=== PATIENT | female | born 1970 | race African-American/Black ===

== ENCOUNTER 2019-06-02 12:14 | Observation (INO) | payer OTHER ==
[2019-06-02 12:23] VITALS: BMI 29.2
--- NOTE | 2019-06-02 12:45 | PDOC ---
History of Present Illness - General Chief Complaint: Blood Pressure Problem Stated Complaint: HYPERTENSION/ HEADACHE Time Seen by Provider: 06/02/19 12:45 Past History - Past Medical History Allergies/Adverse Reactions: Allergies Allergy/AdvReac Type Severity Reaction Status Date / Time No Known Allergies Allergy Verified 06/02/19 12:20 Home Medications: Ambulatory Orders Azithromycin [Zithromax -] 250 mg PO UTDICT #6 tab 04/01/16 CVA: No COPD: No DVT: No Thyroid Disease: No - Immunization History Immunization Up to Date: Yes - Suicide/Smoking/Psychosocial Hx Smoking Status: Yes Smoking History: Never smoked Number of Cigarettes Smoked Daily: 10 'Breaking Loose' booklet given: 04/01/16 Hx Alcohol Use: No Drug/Substance Use Hx: No Substance Use Type: Marijuana *Physical Exam - Vital Signs Last Vital Signs Temp Pulse Resp BP Pulse Ox 98.5 F 73 16 160/101 H 100 06/02/19 12:20 06/02/19 12:20 06/02/19 12:20 06/02/19 12:20 06/02/19 12:20 ED Treatment Course - LABORATORY CBC & Chemistry Diagram: 06/02/19 13:30 06/02/19 13:30 Medical Decision Making - Medical Decision Making HPI: 48yo F with no PMH presenting with high blood pressure reading. Patient does not know what her normal blood pressure is (on chart review BP was 108/78 in 2016). A mobile health van was in her neighborhood and her blood pressure was 148 systolic. Out of concern for a high number, patient checked her blood pressure again today at her pharmacy and it was 160 systolic. She became concerned and decided to come to the ED for evaluation. Reports family history of hypertension; her mother takes medication for it. Denies chest pain, dyspnea , hematuria. Patient is about a 20 pack-year smoker and daily marijuana smoker. Has had about three headaches over the past month and currently feels one coming on now. These headaches are at her baseline and were relieved with two tablets of motrin. 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 No fevers or chills. PCP: Does not currently follow with a primary care provider ROS: Constitutional: no fever, +hot flashes HEENT: no throat pain, no dysphagia Cardiovascular: no chest pain, no palpitations Respiratory: no cough, no shortness of breath Gastrointestinal: no abdominal pain, no nausea Genitourinary: no dysuria, no hematuria Musculoskeletal: no myalgia, no arthralgia Skin: no rash, no itching Neurologic: +headache, no weakness PE: General: Awake, alert, and fully oriented, tearful Head: No signs of trauma Eyes: EOMI, sclera anicteric ENT: Moist mucus membranes Neck: Normal ROM, supple Lungs: Lungs clear, Normal breath sounds Cardio: Regular rhythm, S1 and S2 present Abdomen: Soft, nontender Extremities: Normal range of motion, Distal pulses present SKIN: Warm, Dry, normal turgor Neurologic: Cranial nerves II through XII intact. Normal speech, sensation, strength, coordination, and gait. ED Courses/MDM: DDX including but not limited to asymptomatic hypertension, hypertensive urgency vs emergency, ACS, syncope, CVA, tension headache Labs, EKG 975mg tylenol EKG: rate 62, QTc 403, sinus with frequent PVCs, no prior EKGs hall monitor ordered to assess pattern of PVCs CBC WBC 4.5 K/mm3 (4.0-10.0) 06/02/19 13:30 RBC 4.55 M/mm3 (3.60-5.2) 06/02/19 13:30 Hgb 14.1 GM/dL (10.7-15.3) 06/02/19 13:30 Hct 41.9 % (32.4-45.2) 06/02/19 13:30 MCV 92.1 fl (80-96) 06/02/19 13:30 MCH 31.1 pg (25.7-33.7) 06/02/19 13:30 MCHC 33.7 g/dl (32.0-36.0) 06/02/19 13:30 RDW 13.2 % (11.6-15.6) 06/02/19 13:30 Plt Count 185 K/MM3 (134-434) 06/02/19 13:30 MPV 9.7 fl (7.5-11.1) 06/02/19 13:30 Absolute Neuts (auto) 1.9 K/mm3 (1.5-8.0) 06/02/19 13:30 Neutrophils % 41.4 % (42.8-82.8) L 06/02/19 13:30 Lymphocytes % 41.4 % (8-40) H 06/02/19 13:30 Monocytes % 13.5 % (3.8-10.2) H 06/02/19 13:30 Eosinophils % 2.4 % (0-4.5) 06/02/19 13:30 Basophils % 1.3 % (0-2.0) 06/02/19 13:30 Nucleated RBC % 0 % (0-0) 06/02/19 13:30 No leukocytosis 06/02/19 14:00 CXR without acute pathology, my impression Patient continues to be without acute complaints but reports anxiety at being in the emergency department hall monitor shows frequent PVCs 06/02/19 15:17 PVCs present [id number] or every third beat No signs of end-organ damage on blood work We will plan to admit for telemetry 06/02/19 15:42 *DC/Admit/Observation/Transfer Diagnosis at time of Disposition: Hypertension Qualifiers: Hypertension type: unspecified Qualified Code(s): I10 - Essential (primary) hypertension Dysrhythmia Qualifiers: Atrial fibrillation type: unspecified - Discharge Dispostion Disposition: HOME Condition at time of disposition: Guarded Decision to Admit order: Yes - Referrals - Patient Instructions - Post Discharge Activity
[2019-06-02] MEDS ORDERED: ACETAMINOPHEN 325 MG TABLET (FP) PO ONE (13:15)
[2019-06-02] MEDS ORDERED: ACETAMINOPHEN 325 MG TABLET (FP) ONE (13:23)
[2019-06-02 13:48] LABS: BASO % 1.3 % (0-2.0); EOS % 2.4 % (0-4.5); HEMATOCRIT 41.9 % (32.4-45.2); HEMOGLOBIN 14.1 GM/dL (10.7-15.3); LYMPH % 41.4 % (8-40); MCH 31.1 pg (25.7-33.7); MCHC 33.7 g/dl (32.0-36.0); MEAN CELL VOLUME 92.1 fl (80-96); MEAN PLT VOLUME 9.7 fl (7.5-11.1); MONO % 13.5 % (3.8-10.2); NEUT % 41.4 % (42.8-82.8); PLATELET COUNT 185 K/MM3 (134-434); RBC 4.55 M/mm3 (3.60-5.2); RDW 13.2 % (11.6-15.6); WHITE BLOOD COUNT 4.5 K/mm3 (4.0-10.0)
--- NOTE | 2019-06-02 13:48 | PDOC ---
Documentation entered by Saloni Marcial SCRIBE, acting as scribe for Naya Welch MD. Naya Welch MD: This documentation has been prepared by the Aggie cullen Sammi, SCRIBE, under my direction and personally reviewed by me in its entirety. I confirm that the documentation accurately reflects all work, treatment, procedures, and medical decision making performed by me. Attending Attestation - Resident Resident Name: LisaAileen - ED Attending Attestation I have performed the following: I have examined & evaluated the patient, The case was reviewed & discussed with the resident, I agree w/resident's findings & plan, Exceptions are as noted - HPI HPI: 06/02/19 13:24 The patient is a 48 year old female who presents to the emergency department for evaluation of 2 episodes of a high blood pressure reading. The patient reports there was a mobile van in her neighborhood doing blood pressure reading precautions with a reports systolic of 148. Denies any associated symptoms. She notes concern and that she went to the pharmacy this morning to recheck and reports a reading of systolic 160. The patient is unsure of her normal BP readings. She states she has been under mild stress at work. Denies chest pain, shortness of breath. Denies fever, chills, nausea, vomiting, diarrhea and constipation. Denies dysuria, frequency, urgency and hematuria. Social history: 27 years current smoke (.75 pack/day) Medical history: none reported Family history: hypertension Allergies: NKA - Physicial Exam PE: 06/02/19 13:46 awake alert NAD lungs clear bilat heart rrr no mrg abd soft nt nd ext wwp no edema. no calf tenderness. skin warm and dry. nuero alert oriented. - Medical Decision Making 06/02/19 13:47 48 yo F no pmhx here with c/o elevated bp reading. r/o end organ damange. currently asxs. plan labs ekg cxr. if all negative. donato dc with close followup for repeat bp check in three days. 06/02/19 17:44 pt with frequent PVC 's on monitor sometimes continguous or every 3rd beat. will admite to telemetry to endorgan damage, acs, and dysrthymia . Heart Score/ECG Review #1 General ECG Interpretation: Sinus Rhythm, Normal Rate, Normal Intervals, No acute ischemic changes Compared to previous ECG there are: Other (frequent pVS, TWI III, flat AVF,)
[2019-06-02 14:28] LABS: PLATELET ESTIMATE ADEQUATE
[2019-06-02 14:39] LABS: ALBUMIN 3.8 g/dl (3.4-5.0); ALK PHOS 72 U/L (45-117); ANION GAP 4 MMOL/L (8-16); BILIRUBIN,TOTAL 0.6 mg/dL (0.2-1); BLOOD UREA NITROGEN 11.7 mg/dL (7-18); CALCIUM 10.8 mg/dL (8.5-10.1); CHLORIDE 111 mmol/L (98-107); CO2 27 mmol/L (21-32); CREATININE 0.9 mg/dL (0.55-1.3); GLUCOSE,RANDOM 82 mg/dL (74-106); SGOT/AST 27 U/L (15-37); SGPT/ALT 28 U/L (13-61); SODIUM 143 mmol/L (136-145); TOT PROT 7.1 g/dl (6.4-8.2)
--- NOTE | 2019-06-02 16:40 | PN ---
Teaching Attending Note Name of Resident: Lan Lopez ATTENDING PHYSICIAN STATEMENT I saw and evaluated the patient. I reviewed the resident's note and discussed the case with the resident. I agree with the resident's findings and plan as documented with exceptions below. SUBJECTIVE: 48 yof with no prior PMHx, no recent PCP follow up, noted her BP to be 148 systolic yesterday with the mobile van in the neighborhood, today went to pharmacy, noted was 160 so came to ED. C/o intermittent headache that resolves with NSAIDs, but does endorse h/o chronic headaches. Was noted with frequent PVCs on telemetry. She denies any chest pain, dyspnea, dizziness, palpitations, near syncope, abdominal or urinary symptoms. No concerns for exertional chest pain or dyspnea 1/2 PPD x 17 years, positive marihuana use. OBJECTIVE: Vital Signs Period Temp Pulse Resp BP Sys/Hernandez Pulse Ox Last 24 Hr 98.5 F 73 16 160/101 100 Intake & Output 05/30/19 05/31/19 06/01/19 06/02/19 23:59 23:59 23:59 23:59 Weight 165 lb GENERAL: Awake, alert, and fully oriented, in no acute distress. HEAD: Normal with no signs of trauma. EYES: Pupils equal, round and reactive to light, extraocular movements intact, sclera anicteric, conjunctiva clear. No lid lag. EARS, NOSE, THROAT: Ears normal, nares patent, oropharynx clear without exudates. Moist mucous membranes. NECK: Normal range of motion, supple without lymphadenopathy, JVD, or masses. LUNGS: Breath sounds equal, clear to auscultation bilaterally. No wheezes, and no crackles. No accessory muscle use. HEART: Regular rate and rhythm, normal S1 and S2, ABDOMEN: Soft, nontender, not distended, normoactive bowel sounds, no guarding, no rebound, no masses. No hepatomegaly or splenomegaly appreciated. MUSCULOSKELETAL: Normal range of motion at all joints. No bony deformities or tenderness. No CVA tenderness. UPPER EXTREMITIES: 2+ pulses, warm, well-perfused. No cyanosis. No clubbing. No peripheral edema. LOWER EXTREMITIES: 2+ pulses, warm, well-perfused. No calf tenderness. No peripheral edema. NEUROLOGICAL: AAOx3, power 5/5, sensation intact to light touch, facial symmetry, tongue midline, speech normal, Cranial nerves II-XII intact. Normal speech. gait not observed PSYCHIATRIC: Cooperative. Good eye contact. Appropriate mood and affect. SKIN: Warm, dry, normal turgor, no rashes or lesions noted, normal capillary refill. Home Medications Medication Instructions Recorded Azithromycin [Zithromax -] 250 mg PO UTDICT #6 tab 04/01/16 Laboratory Results - last 24 hr 06/02/19 06/02/19 13:30 13:30 WBC 4.5 RBC 4.55 Hgb 14.1 Hct 41.9 MCV 92.1 MCH 31.1 MCHC 33.7 RDW 13.2 Plt Count 185 MPV 9.7 Absolute Neuts (auto) 1.9 Neutrophils % 41.4 L Lymphocytes % 41.4 H Monocytes % 13.5 H Eosinophils % 2.4 Basophils % 1.3 Nucleated RBC % 0 Platelet Estimate Adequate Platelet Comment Sodium 143 Potassium 4.0 Chloride 111 H Carbon Dioxide 27 Anion Gap 4 L BUN 11.7 Creatinine 0.9 Est GFR (CKD-EPI)AfAm 88.25 Est GFR (CKD-EPI)NonAf 76.14 Random Glucose 82 Calcium 10.8 H Total Bilirubin 0.6 AST 27 ALT 28 Alkaline Phosphatase 72 Creatine Kinase 119 Troponin I < 0.02 Total Protein 7.1 Albumin 3.8 CXR images and results reviewed, no acute process EKG NSR, frequent PVCs noted ASSESSMENT AND PLAN: 48 yof with no known PMhx comes with elevated BP outpatient, noted with frequent PVCs -Elevated BP, suspect newly diagnosed HTN -Ventricular bigeminy/trigeminy Plan: telemetry, check TSH/Mg/Phos/2D echo Cardiology input. Smoking/marihuana cessation counseling provided. Discussed may need outpatient Holter and additional testing including stress test pending cardiology recs. Check lipid panel. Place on low dose metoprolol DVTPPX Dispo admit to obs telemetry discussed with patient. total admit time 55 min
[2019-06-02 16:46] LABS: PHOSPHOROUS 2.9 mg/dL (2.5-4.9)
[2019-06-02 16:47] LABS: MAGNESIUM 2.1 mg/dL (1.8-2.4)
--- NOTE | 2019-06-02 17:05 | HP ---
CHIEF COMPLAINT: Pt had high blood pressure at pharmacy PCP: between doctors. Agrees to come to residents clinic in the interim HISTORY OF PRESENT ILLNESS: Pt is a 48 y/o F with no medical history who presents to the clinic with concern about high blood pressure. She has not seen a doctor in the last year. Pt had her pressure measured at a mobile health education service, which was high. She measured it again this morning and it was high again. She was concerned, and so she came to ED. In ED she was found to have frequent PVCs. Pt has been completely asymptomatic. ROS negative. ER course was notable for: (1) vss, lytes wnl (2) frequent PVCs (3) Recent Travel: denies PAST MEDICAL HISTORY: none PAST SURGICAL HISTORY: C/S Social History: Smokin pack/year Alcohol: denies Drugs: marijuana Family History: DM, HTN Allergies No Known Allergies Allergy (Verified 06/02/19 12:20) HOME MEDICATIONS: Home Medications Medication Instructions Recorded Azithromycin [Zithromax -] 250 mg PO UTDICT #6 tab 04/01/16 REVIEW OF SYSTEMS CONSTITUTIONAL: Absent: fever, chills, diaphoresis, generalized weakness, malaise, loss of appetite, weight change HEENT: Absent: rhinorrhea, nasal congestion, throat pain, throat swelling, difficulty swallowing, mouth swelling, ear pain, eye pain, visual changes CARDIOVASCULAR: Absent: chest pain, syncope, palpitations, irregular heart rate, lightheadedness , peripheral edema RESPIRATORY: Absent: cough, shortness of breath, dyspnea with exertion, orthopnea, wheezing, stridor, hemoptysis GASTROINTESTINAL: Absent: abdominal pain, abdominal distension, nausea, vomiting, diarrhea, constipation, melena, hematochezia GENITOURINARY: Absent: dysuria, frequency, urgency, hesitancy, hematuria, flank pain, genital pain MUSCULOSKELETAL: Absent: myalgia, arthralgia, joint swelling, back pain, neck pain SKIN: Absent: rash, itching, pallor HEMATOLOGIC/IMMUNOLOGIC: Absent: easy bleeding, easy bruising, lymphadenopathy, frequent infections ENDOCRINE: Absent: unexplained weight gain, unexplained weight loss, heat intolerance, cold intolerance NEUROLOGIC: Absent: headache, focal weakness or paresthesias, dizziness, unsteady gait, seizure, mental status changes, bladder or bowel incontinence PSYCHIATRIC: Absent: anxiety, depression, suicidal or homicidal ideation, hallucinations. PHYSICAL EXAMINATION Vital Signs - 24 hr 06/02/19 12:20 Temperature 98.5 F Pulse Rate 73 Respiratory 16 Rate Blood Pressure 160/101 H O2 Sat by Pulse 100 Oximetry (%) Gen: NAD, AAOx3 HEENT: NCAT, EOMI Neck: supple, no jvd Cardio: rrr with extrasystoles, normal s1s2, midsystolic 3/6 murmur Pulm: cta b/l Ext: no edema Laboratory Results - last 24 hr 06/02/19 06/02/19 13:30 13:30 WBC 4.5 RBC 4.55 Hgb 14.1 Hct 41.9 MCV 92.1 MCH 31.1 MCHC 33.7 RDW 13.2 Plt Count 185 MPV 9.7 Absolute Neuts (auto) 1.9 Neutrophils % 41.4 L Lymphocytes % 41.4 H Monocytes % 13.5 H Eosinophils % 2.4 Basophils % 1.3 Nucleated RBC % 0 Platelet Estimate Adequate Platelet Comment Sodium 143 Potassium 4.0 Chloride 111 H Carbon Dioxide 27 Anion Gap 4 L BUN 11.7 Creatinine 0.9 Est GFR (CKD-EPI)AfAm 88.25 Est GFR (CKD-EPI)NonAf 76.14 Random Glucose 82 Calcium 10.8 H Total Bilirubin 0.6 AST 27 ALT 28 Alkaline Phosphatase 72 Creatine Kinase 119 Troponin I < 0.02 Total Protein 7.1 Albumin 3.8 ASSESSMENT/PLAN: Pt is a 48 y/o F with no PMH who presents with HTN. Pt is being placed on obs b/ c of frequent pvcs. #PVCs -r/o arrhythmia -Tele -cards consult -echo -EKG remarkable for PVCs -Check lytes, TSH #HTN -will manage with home meds Visit type - Emergency Visit Emergency Visit: Yes ED Registration Date: 06/02/19 Care time: The patient presented to the Emergency Department on the above date and was hospitalized for further evaluation of their emergent condition. - New Patient This patient is new to me today: Yes Date on this admission: 06/05/19 - Critical Care Critical Care patient: No ATTENDING PHYSICIAN STATEMENT I saw and evaluated the patient. I reviewed the resident's note and discussed the case with the resident. I agree with the resident's findings and plan as documented. SUBJECTIVE: OBJECTIVE: ASSESSMENT AND PLAN:
[2019-06-02] MEDS ORDERED: metoPROLOL SUCCINATE 25 MG TAB.SR.24H (FP) PO SCH (17:15)
[2019-06-02] MEDS ORDERED: amLODIPine BESYLATE 5 MG TABLET (FP) PO ONE (20:22)
[2019-06-02] MEDS: NICOTINE 7 MG/24 HOURS TOPICAL PATCH TD SCH (21:54)
[2019-06-02] MEDS ORDERED: METOPROLOL TARTRATE 25 MG TABLET (FP) PO SCH (22:00)
[2019-06-03 08:07] LABS: BLOOD UREA NITROGEN 10.5 mg/dL (7-18); CALCIUM 10.7 mg/dL (8.5-10.1); CREATININE 0.8 mg/dL (0.55-1.3); MAGNESIUM 2.1 mg/dL (1.8-2.4); PHOSPHOROUS 3.2 mg/dL (2.5-4.9); POTASSIUM 4.1 mmol/L (3.5-5.1)
[2019-06-03 08:15] LABS: BASO % 0.7 % (0-2.0); EOS % 3.4 % (0-4.5); HEMATOCRIT 40.9 % (32.4-45.2); HEMOGLOBIN 14.2 GM/dL (10.7-15.3); LYMPH % 46.7 % (8-40); MCH 31.5 pg (25.7-33.7); MCHC 34.7 g/dl (32.0-36.0); MEAN CELL VOLUME 90.9 fl (80-96); MONO % 13.3 % (3.8-10.2); NEUT % 35.9 % (42.8-82.8); PLATELET COUNT 203 K/MM3 (134-434); RBC 4.49 M/mm3 (3.60-5.2); WHITE BLOOD COUNT 3.9 K/mm3 (4.0-10.0)
--- NOTE | 2019-06-03 08:48 | EKG ---
Test Reason : Blood Pressure : / mmHG Vent. Rate : 062 BPM Atrial Rate : 062 BPM P-R Int : 158 ms QRS Dur : 080 ms QT Int : 398 ms P-R-T Axes : 055 022 015 degrees QTc Int : 403 ms SINUS RHYTHM WITH FREQUENT PREMATURE VENTRICULAR COMPLEXES POSSIBLE LEFT ATRIAL ENLARGEMENT CANNOT RULE OUT ANTERIOR INFARCT , AGE UNDETERMINED ABNORMAL ECG NO PREVIOUS ECGS AVAILABLE Confirmed by TOMI RUIZ MD ([id number]) on 06/03/2019 8:48:04 AM Referred By: Confirmed By:TOMI RUIZ MD
[2019-06-03] MEDS: NICOTINE 7 MG/24 HOURS TOPICAL PATCH TD SCH (09:53)
[2019-06-03] MEDS ORDERED: metoPROLOL SUCCINATE 25 MG TAB.SR.24H (FP) PO SCH (10:00)
[2019-06-03] MEDS ORDERED: ASPIRIN 81 MG CHEWABLE TABLETS PO SCH (10:00)
[2019-06-03 10:08] VITALS: TEMP 98.3
--- NOTE | 2019-06-03 10:39 | CON.CARD ---
Cardiology Consult (text) - Consultation Consultation Note: cc: htn hpi: 48 f no sig pmhx here with htn. Pt has no hx hrt dz or htn. She has been feeling well. No cp sob palps dizzy loc pnd orthopnea le edema. Had bp checked at mobile clinic and was elevated so she came to ER. pmh: per hpi psh: none social: +tob fam: no cad, scd ros: per hpi; all others nl meds: none pe: Vital Signs Period Temp Pulse Resp BP Sys/Hernandez Pulse Ox Last 24 Hr 98.0 F-98.7 F 42-86 15-18 123-182/75-101 97-100 nad no jvd rrr s1s2 no mrg cta bl nl eff aao3 no le e/c/c abd nt nd pos bs no jaundice diaphoresis pos dp pt no carotid bruits Laboratory Last Values WBC 3.9 K/mm3 (4.0-10.0) L 06/03/19 06:35 RBC 4.49 M/mm3 (3.60-5.2) 06/03/19 06:35 Hgb 14.2 GM/dL (10.7-15.3) 06/03/19 06:35 Hct 40.9 % (32.4-45.2) 06/03/19 06:35 MCV 90.9 fl (80-96) 06/03/19 06:35 MCH 31.5 pg (25.7-33.7) 06/03/19 06:35 MCHC 34.7 g/dl (32.0-36.0) 06/03/19 06:35 RDW 13.0 % (11.6-15.6) 06/03/19 06:35 Plt Count 203 K/MM3 (134-434) 06/03/19 06:35 MPV 10.0 fl (7.5-11.1) 06/03/19 06:35 Absolute Neuts (auto) 1.4 K/mm3 (1.5-8.0) L 06/03/19 06:35 Neutrophils % 35.9 % (42.8-82.8) L 06/03/19 06:35 Lymphocytes % 46.7 % (8-40) H 06/03/19 06:35 Monocytes % 13.3 % (3.8-10.2) H 06/03/19 06:35 Eosinophils % 3.4 % (0-4.5) 06/03/19 06:35 Basophils % 0.7 % (0-2.0) 06/03/19 06:35 Nucleated RBC % 0 % (0-0) 06/03/19 06:35 Platelet Estimate Adequate 06/02/19 13:30 Platelet Comment 06/02/19 13:30 Sodium 143 mmol/L (136-145) 06/03/19 06:35 Potassium 4.1 mmol/L (3.5-5.1) 06/03/19 06:35 Chloride 110 mmol/L (98-107) H 06/03/19 06:35 Carbon Dioxide 27 mmol/L (21-32) 06/03/19 06:35 Anion Gap 6 MMOL/L (8-16) L 06/03/19 06:35 BUN 10.5 mg/dL (7-18) 06/03/19 06:35 Creatinine 0.8 mg/dL (0.55-1.3) 06/03/19 06:35 Est GFR (CKD-EPI)AfAm 101.75 06/03/19 06:35 Est GFR (CKD-EPI)NonAf 87.79 06/03/19 06:35 Random Glucose 88 mg/dL (74-106) 06/03/19 06:35 Calcium 10.7 mg/dL (8.5-10.1) H 06/03/19 06:35 Phosphorus 3.2 mg/dL (2.5-4.9) 06/03/19 06:35 Magnesium 2.1 mg/dL (1.8-2.4) 06/03/19 06:35 Total Bilirubin 0.6 mg/dL (0.2-1) 06/02/19 13:30 AST 27 U/L (15-37) 06/02/19 13:30 ALT 28 U/L (13-61) 06/02/19 13:30 Alkaline Phosphatase 72 U/L (45-117) 06/02/19 13:30 Creatine Kinase 119 U/L (26-192) 06/02/19 13:30 Troponin I < 0.02 ng/ml (0.00-0.05) 06/02/19 13:30 Total Protein 7.1 g/dl (6.4-8.2) 06/02/19 13:30 Albumin 3.8 g/dl (3.4-5.0) 06/02/19 13:30 Triglycerides 112 mg/dL (0-150) 06/03/19 06:35 Cholesterol 183 mg/dL (50-200) 06/03/19 06:35 Total LDL Cholesterol 101 mg/dL (5-100) H 06/03/19 06:35 HDL Cholesterol 62 mg/dL (40-60) H 06/03/19 06:35 TSH 0.68 uIU/ml (0.358-3.74) 06/02/19 13:30 tele: sr, isolated pvcs ecg: sr, nl intervals, no ischemic changes, pvcs cxr: clear lungs echo 05/2019: nl lv/rv, mild mr, mild tr, rvsp 30-40 a/p: 48 f no sig pmhx here with htn. htn: -improved now -continue toprol 25 qd abnl ecg, pvcs: -pt having asymptomatic pvcs -echo unremarkable -tsh, lytes, wnl -benign ectopy, cont toprol for now tob use: -smoking cessation discussed cardiac house ok for dc
--- NOTE | 2019-06-03 11:11 | DS ---
Physical Exam: SUBJECTIVE: Patient seen and examined, no complaints, headache resolved. OBJECTIVE: Vital Signs Period Temp Pulse Resp BP Sys/Hernandez Pulse Ox Last 24 Hr 98.0 F-98.7 F 42-86 15-18 123-182/75-101 97-100 Intake & Output 05/31/19 06/01/19 06/02/19 06/03/19 23:59 23:59 23:59 23:59 Intake Total 130 Balance 130 Weight 165 lb PHYSICAL EXAM GENERAL: sitting in bed in no acute distress Neck: soft, supple, no JVD CVS:S1S2 regular Chest: CTAB, no rales or wheezing Abdomen:soft, NT, ND, pos bowel sounds extremities: no edema Psych: co-operative LABS Laboratory Results - last 24 hr 06/02/19 06/02/19 06/03/19 13:30 13:30 06:35 WBC 4.5 RBC 4.55 Hgb 14.1 Hct 41.9 MCV 92.1 MCH 31.1 MCHC 33.7 RDW 13.2 Plt Count 185 MPV 9.7 Absolute Neuts (auto) 1.9 Neutrophils % 41.4 L Lymphocytes % 41.4 H Monocytes % 13.5 H Eosinophils % 2.4 Basophils % 1.3 Nucleated RBC % 0 Platelet Estimate Adequate Platelet Comment Sodium 143 143 Potassium 4.0 4.1 Chloride 111 H 110 H Carbon Dioxide 27 27 Anion Gap 4 L 6 L BUN 11.7 10.5 Creatinine 0.9 0.8 Est GFR (CKD-EPI)AfAm 88.25 101.75 Est GFR (CKD-EPI)NonAf 76.14 87.79 Random Glucose 82 88 Calcium 10.8 H 10.7 H Phosphorus 2.9 3.2 Magnesium 2.1 2.1 Total Bilirubin 0.6 AST 27 ALT 28 Alkaline Phosphatase 72 Creatine Kinase 119 Troponin I < 0.02 Total Protein 7.1 Albumin 3.8 Triglycerides 112 Cholesterol 183 Total LDL Cholesterol 101 H HDL Cholesterol 62 H TSH 0.68 06/03/19 06:35 WBC 3.9 L RBC 4.49 Hgb 14.2 Hct 40.9 MCV 90.9 MCH 31.5 MCHC 34.7 RDW 13.0 Plt Count 203 MPV 10.0 Absolute Neuts (auto) 1.4 L Neutrophils % 35.9 L Lymphocytes % 46.7 H Monocytes % 13.3 H Eosinophils % 3.4 Basophils % 0.7 Nucleated RBC % 0 Platelet Estimate Platelet Comment Sodium Potassium Chloride Carbon Dioxide Anion Gap BUN Creatinine Est GFR (CKD-EPI)AfAm Est GFR (CKD-EPI)NonAf Random Glucose Calcium Phosphorus Magnesium Total Bilirubin AST ALT Alkaline Phosphatase Creatine Kinase Troponin I Total Protein Albumin Triglycerides Cholesterol Total LDL Cholesterol HDL Cholesterol TSH 2D echo done, results pending telemetry with Ventricular bigeminy/trigeminy HOSPITAL COURSE: Date of Admission:06/02/19 Date of Discharge: 06/03/19 Minutes to complete discharge: 41 Discharge Summary Reason For Visit: CARDIAC ARRYTHMIA Hospital Course: 48 yof with no known PMhx comes with eheadache/elevated BP outpatient, noted with frequent PVCs. She was watched on telemetry and noted with ventricular bigeminy/trigeminy, asymptomatic. Her TSh and electrolytes were within normal limits. She had 2D echo but official report is currently pending. She was seen by cardiology and deemed stable for discharge on Toprol XL 25 mg daily with outpatient follow up. She is currently asymptomatic and will be discharged home in stable condition with instructions for PCP/cardiology follow up and home BP monitoring. Condition: Stable - Instructions Diet, Activity, Other Instructions: You were admitted with elevated BP and found with abnormal beats on your heart monitor You had 2D echocardiogram that was negative for concerns. You were seen by software configuration specialist and deemed stable for dc. MEDICATIONS: New medication Toprol XL 25 mg daily. Aspirin 81 mg daily INSTRUCTIONS: If you notice worsening weakness or dizziness on the new medication, please call your doctor Advise home BP monitoring daily till next doctor visit and notify doctor if persistent SBP (upper reading) >140 or DBP (lower reading)>100 noted. Sodium controlled low fat diet. 2D echo official read is currently pending, please have your doctor follow up on the same. FOLLOW UP: It is very important that you establish care with a primary care doctor outpatient. Referral information for Dr. Santos and for the president/gm production & live experiences clinic at [facility] have been provided. Follow up with software configuration specialist in 2-3 weeks (info provided) (Discuss 2D echo results) If you notice any new palpitations, dizziness, worsening breathing, feeling of passing out or any new concerns, please call 911 or come to ED rightaway. Referrals: Burton Molina MD [Staff Physician] - Casa Malagon MD [Staff Physician] - Reuben Vera MD [Staff Physician] - Disposition: HOME - Home Medications Comprehensive Discharge Medication List: Ambulatory Orders Aspirin [ASA -] 81 mg PO DAILY #30 tab.chew 06/03/19 Metoprolol Succinate [Toprol XL -] 25 mg PO DAILY #30 tab.sr.24h 06/03/19 Miscellaneous Drug Not in Syst 1 each .ROUTE DAILY #1 each 06/03/19 This patient is new to me today: No Emergency Visit: Yes ED Registration Date: 06/02/19 Care time: The patient presented to the Emergency Department on the above date and was hospitalized for further evaluation of their emergent condition. Critical Care patient: No - Discharge Referral Referred to [facility] Yes Physician Referral: Casa Santos MD ([facility])
[2019-06-03 14:07] VITALS: BP 117/89; PULSE 67
--- NOTE | 2019-06-06 07:06 | ECHO ---
Name: SWEAT, LOUIE Exam:Adult Echocardiogram Study Date: 06/02/2019 03:59 PM Age: 48 yrs Reason For Study: pvc ef Height: 63 in Weight: 165 lb BSA: 1.8 m2 MMode/2D Measurements & Calculations IVSd: 0.96 cm Ao root diam: 2.2 cm LVIDd: 4.4 cm LA dimension: 2.7 cm LVIDs: 2.6 cm LVPWd: 1.00 cm LVPWs: 1.4 cm EDV(Teich): 85.4 ml ESV(Teich): 25.7 ml LVOT diam: 1.9 cm Doppler Measurements & Calculations MV E max miguel: 88.4 cm/sec Ao V2 max: 164.2 cm/sec MV A max miguel: 113.5 cm/sec Ao max P.9 mmHg MV E/A: 0.78 Ao V2 mean: 102.4 cm/sec MV dec time: 0.23 sec Ao mean P.2 mmHg Ao V2 VTI: 32.3 cm ARLENE(I,D): 2.0 cm2 ARLENE(V,D): 1.6 cm2 LV V1 max P.6 mmHg SV(LVOT): 64.1 ml LV V1 mean P.0 mmHg LV V1 max: 94.8 cm/sec LV V1 mean: 66.3 cm/sec LV V1 VTI: 23.6 cm TR max miguel: 260.6 cm/sec PA V2 max: 97.7 cm/sec TR max P.2 mmHg PA max P.8 mmHg RVSP(TR): 37.2 mmHg Med Peak E' Miguel: 4.3 cm/sec RAP systole: 10.0 mmHg Med E/e': 20.7 Lat Peak E' Miguel: 8.3 cm/sec Lat E/e': 10.6 Left Ventricle There is borderline concentric left ventricular hypertrophy. Left ventricular systolic function is no rmal. Ejection Fraction = 55-60%. The transmitral spectral Doppler flow pattern is suggestive of impaired L V relaxation. Right Ventricle The right ventricle is normal in size and function. Atria Normal left and right atrial size and function. Mitral Valve The mitral valve is normal in structure and function. There is no mitral valve stenosis. There is mil d mitral regurgitation. Tricuspid Valve The tricuspid valve is normal in structure and function. There is mild tricuspid regurgitation. Right ventricular systolic pressure is elevated at 30-40mmHg. Aortic Valve The aortic valve is trileaflet. No hemodynamically significant valvular aortic stenosis. No aortic regurgitation is present. Pulmonic Valve The pulmonic valve is not well seen, but is grossly normal. There is no pulmonic valvular stenosis. T race pulmonic valvular regurgitation. Great Vessels The aortic root is normal size. Pericardium/Pleura There is no pericardial effusion. Interpretation Summary Left ventricular systolic function is normal. Ejection Fraction = 55-60%. There is borderline concentric left ventricular hypertrophy. The transmitral spectral Doppler flow pattern is suggestive of impaired LV relaxation. The right ventricle is normal in size and function. There is mild mitral regurgitation. There is mild tricuspid regurgitation. Right ventricular systolic pressure is elevated at 30-40mmHg. There is no pericardial effusion. MD Reddy *Elizabeth 06/02/2019 04:38 PM
== END 2019-06-03 15:47 | disposition home or self-care (01) ==
LOC: JER 12:14 → INTOOBSV 15:43 → JERBED 15:43 → J4S 17:47
PROVIDERS: ADMIT Hospitalist; ATTEND Hospitalist
DX: I10 Essential (primary) hypertension (principal); I49.9 Cardiac arrhythmia, unspecified; R94.31 Abnormal electrocardiogram [ECG] [EKG]; I49.3 Ventricular premature depolarization
CPT/HCPCS: 36415; 71046-TC-FY; 80048; 80053; 80061; 82550; 83721; 83735; 84100; 84443; 84484; 85025; 87389; 93005; 93010; 93306-TC; 99285-25; G0378